=== PATIENT | female | born 1960 | race Caucasian/White ===

== ENCOUNTER 2018-04-21 15:34 | Emergency (ER) | payer BC ==
[~2018-04-21] VITALS: Ht 165.1 cm; Wt 78.3 kg
[~2018-04-21 15:34] MED LIST: CLINDAMYCIN HC300 MG PO; CYMBALTA60 MG PO; ERGOCALCIF50000 UNIT PO; GRALISE600 MG PO; INDOCIN25 MG PO; NASONEX17 GM BOTH NARES; PERCOCET 5/31 TABLET PO; PREDNISONE20 MG PO; PRILOSEC20 MG PO; PROTONIX40 MG PO; VITAMIN D32000 UNI1 PO; ZESTORETIC 20-1 EAC2 PO; ZITHROMAX Z-PA250 MG PO; ZOFRAN ODT4 MG PO
[2018-04-21 17:39] LABS: BASOPHIL (%) 0.3 % (0-1); EOSINOPHIL (%) 2.9 % (0-5); EOSINOPHIL COUNT 0.2 K/uL (0-0.3); HEMATOCRIT 43.9 % (36.0-46.0); IMMATURE GRANULOCYTE (%) 0.3 % (0.0-0.7); LYMPHOCYTE (%) 23.1 % (15-42); LYMPHOCYTE COUNT 1.7 K/uL (1.0-2.8); MCH 30.3 PG (29.0-34.0); MCHC 34.2 G/DL (30.0-36.0); MCV 88.7 FL (83-99); MONOCYTE (%) 7.9 % (3-12); MONOCYTE COUNT 0.6 K/uL (0-0.8); NEUTROPHIL (%) 65.5 % (45-76); NEUTROPHIL COUNT 4.7 K/uL (1.8-6.4); PLATELET COUNT 334 K/uL (156-360); RBC DIS.WIDTH-CV 13.3 % (11.8-14.6); RBC DIS.WIDTH-SD 43.1 % (39-53); RED BLOOD COUNT 4.95 M/uL (3.80-5.20); WHITE BLOOD COUNT 7.2 K/uL (4.1-10.2)
[2018-04-21 17:44] LABS: ALBUMIN 4.8 g/dL (3.2-4.8); CHLORIDE 104 mEq/L (99-109); POTASSIUM 3.4 mEq/L (3.7-5.4); SODIUM 139 mEq/L (136-147)
[2018-04-21 17:46] LABS: GLUCOSE 105 mg/dL (70-99)
[2018-04-21 17:50] LABS: ALKALINE PHOSPHATASE 114 IU/L (3-129); CREATININE 0.9 mg/dL (0.6-1.3); GFR ESTIMATE (CALCULATED) > 59 mL/min/
[2018-04-21 17:51] LABS: UREA NITROGEN (BUN) 20 mg/dL (9-23)
[2018-04-21 17:52] LABS: AST (GOT) 21 IU/L (2-34)
[2018-04-21 17:53] LABS: ALT (GPT) 20 IU/L (3-49); LIPASE 34 U/L (1.0-51.0)
[2018-04-21 18:52] LABS: APPEARANCE CLEAR ((CLEAR)); BILIRUBIN NEGATIVE; BLOOD SMALL; COLOR YELLOW ((YELLOW)); GLUCOSE (STRIP) NEGATIVE; KETONES NEGATIVE; LEUKOCYTES MODERATE; NITRITE NEGATIVE; PROTEIN (STRIP) NEGATIVE; SPECIFIC GRAVITY 1.008 (1.000-1.030); UROBILINOGEN 0.2 MG/DL (0.2-1.0)
[2018-04-21 19:03] LABS: BACTERIA RARE /HPF; EPITHELIAL CELLS RARE /HPF; MUCUS TRACE /LPF; RED BLOOD CELLS 0-5 /HPF (0-5); WHITE BLOOD CELLS 15-20 /HPF (0-5)
[2018-04-21] MEDS ORDERED: CIPRO250 MG PO (21:07)
[2018-04-21] MEDS ORDERED: IMODIUM A-D2 M2 PO (21:07)
[2018-04-21 21:33] VITALS: BP 120/63
== END 2018-04-21 21:41 | disposition home or self-care (01) ==
LOC: EME 15:34
PROVIDERS: Emergency Medicine
DX: R19.7 Diarrhea, unspecified (principal); N39.0 Urinary tract infection, site not specified; R10.9 Unspecified abdominal pain; K57.30 Diverticulosis of large intestine without perforation or abscess without bleeding; K21.9 Gastro-esophageal reflux disease without esophagitis; M79.7 Fibromyalgia; G43.909 Migraine, unspecified, not intractable, without status migrainosus; F41.9 Anxiety disorder, unspecified; F32.9 Major depressive disorder, single episode, unspecified; F17.200 Nicotine dependence, unspecified, uncomplicated; Z87.442 Personal history of urinary calculi; Z90.710 Acquired absence of both cervix and uterus; Z88.2 Allergy status to sulfonamides
CPT/HCPCS: 74177; 80053; 81003; 83690; 85025; 99281; 99284

== ENCOUNTER → 2018-05-23 | Outpatient (CLI) | payer BC ==
[~2018-05-23] MED LIST changes: +CIPRO250 MG PO; +IMODIUM A-D2 M2 PO
== END | disposition home or self-care (01) ==
LOC: NUC 08:00
DX: R10.9 Unspecified abdominal pain (principal)
CPT/HCPCS: 78227; A9537; J2805